=== PATIENT | male | born 1995 | race African-American/Black ===

== ENCOUNTER 2016-05-03 19:47 | Emergency (ER) | payer OTHER ==
[2016-05-03] MEDS ORDERED: PHENAZOPYRIDINE 100 MG TAB As Ordered ONE (22:02)
--- NOTE | 2016-05-03 22:07 | EDDOCDS ---
Nurse's Notes [facility] Name: Travis Palma Age: 21 yrs Sex: Male : 1995 Arrival Date: 05/03/2016 Time: 19:47 Bed Triage 3 Private MD: ORJoseph GASTON Diagnosis: Acute cystitis without hematuria Presentation: 05/03 19:54 Presenting complaint: Patient states: Has urinary frequency x1 week. Feels like he has jo3 to go but only a little comes out. Adult Sepsis Screening: The patient does not have new or worsening altered mentation. Patient's respiratory rate is less than 22. Systolic blood pressure is greater than 100. Patient has a qSOFA score of 0- Negative Sepsis Screen. Suicide/Homicide risk assessment- the patient denies having any suicidal and/or homicidal ideations and does not present with any other emotional, behavioral or mental health complaints. 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 Transition of care: patient was not received from another setting of care. 19:54 Acuity: ADELITA Level 3 jo3 19:54 Method Of Arrival: Walkin/Carried/Asstd jo3 Triage Assessment: 19:56 General: Appears in no apparent distress, Behavior is appropriate for age, cooperative. jo3 HIV screening NA for this visit Offered previously. Neurological: Level of Consciousness is awake, alert, Oriented to person, place, time. Respiratory: Airway is patent Respiratory effort is even, unlabored. Historical: - Allergies: no known allergies; - Home Meds: 1. none - PMHx: none; - PSHx: none; - Social history: Smoking status: Patient states was never smoker of tobacco. No barriers to communication noted, The patient speaks fluent Northern Irish, Speaks appropriately for age, Preferred Language:. - Family history: Not pertinent. - : The pt / caregiver states he / she is not on anticoagulants. Home medication list is obtained from the patient. - Exposure Risk Screening:: None identified. Screenin:46 Screening information is obtained from the patient. Fall risk: No risks identified. lf1 Assistance ADL's: requires no assistance with activities of daily living. Abuse/DV Screen: The patient / caregiver reports he/she is: not in a situation that causes fear, pain or injury. Nutritional screening: No deficits noted. Advance Directives: Currently, there is. home support is adequate. Assessment: 20:46 Adult Sepsis Screening: The patient does not have new or worsening altered mentation. lf1 Patient's respiratory rate is less than 22. Systolic blood pressure is greater than 100. Patient has a qSOFA score of 0- Negative Sepsis Screen. General: Appears in no apparent distress, Behavior is cooperative. Pain: Denies pain. Neurological: Level of Consciousness is awake, alert, Oriented to person, place, time. EENT: No deficits noted. Cardiovascular: No deficits noted. Respiratory: Respiratory effort is even, unlabored. GI: No deficits noted. : Reports urinary frequency Denies burning with urination. Derm: No deficits noted. 22:05 Reassessment: Patient appears in no apparent distress at this time. Patient denies pain jo3 at this time. Vital Signs: 19:50 BP 135 / 67; Pulse 67; Resp 18 S; Temp 96.7(O); Pulse Ox 99% on R/A; Weight 77.11 kg gr2 (R); Height 72 in. (182.88 cm) (R); Pain 2/10; 22:03 BP 140 / 66; Pulse 70; Resp 20; Temp 97.5(O); Pulse Ox 97% on R/A; Pain 0/10; jmv 19:50 Body Mass Index 23.06 (77.11 kg, 182.88 cm) gr2 Vitals: 19:50 Log In Time: May 03, 2016 at 19:50. gr2 ED Course: 19:49 Patient visited by Kimberly Nash. gr2 19:49 [facility], [place] is Private Physician. gr2 19:49 Patient moved to Waiting gr2 19:51 Patient visited by Kimberly Nash. gr2 19:51 Patient moved to Pre RCE gr2 19:56 Triage Initiated jo3 19:57 Patient visited by Maria L Christianson RN. jo3 20:42 Patient moved to Triage 3 lf1 21:03 Patient visited by Katia Lynn RN. lf1 21:03 UA Sent. lf1 21:16 Gian Lee PA is PHCP. mo1 21:16 Charlie Phillips DO is Attending Physician. mo1 21:27 Patient visited by Gian Lee PA. mo1 21:50 Bladder Scan completed Results: 35 mL. jf3 21:58 [facility], [place] is Referral Physician. mo1 22:03 [facility] [place] was scanned into [employer] and attached to record. gjb 22:04 Patient visited by Brannon Hood PCA. jmv 22:05 The patient / caregiver is instructed regarding the plan of care and ED course. jo3 22:05 No IV's were initiated during this patient's visit. No procedures done that require jo3 assistance. Administered Medications: 22:05 Drug: Phenazopyridine 200 mg [phenazopyridine 100 mg tablet (2 tabs)] Route: PO; jo3 Point of Care Testing: Blood Glucose: 21:50 Blood Glucose: 87 mg/dL; jf3 Ranges: Order Results: Lab Order: UA; SPEC'M 05/03/16 20:59 Test: APPEARANCE, URINE; Value: CLEAR; Range: CLEAR; Status: F Test: COLOR, URINE; Value: YELLOW; Range: YELLOW; Status: F Test: PH,URINE; Value: 7.0; Range: 5.0-9.0; Units: UNITS; Status: F Test: SPECIFIC GRAVITY URINE AUTO; Value: 1.025; Range: 1.002-1.035; Status: F Test: PROTEIN, URINE AUTO; Value: NEGATIVE; Range: NEGATIVE; Units: mg/dL; Status: F Test: GLUCOSE, URINE (UA) AUTO; Value: NEGATIVE; Range: NEGATIVE; Units: mg/dL; Status: F Test: KETONE, URINE AUTO; Value: NEGATIVE; Range: NEGATIVE; Units: mg/dL; Status: F Test: UROBILINOGEN, URINE AUTO; Value: 2.0; Range: 0.0-2.0; Abnormal: Above high normal; Units: mg/dL; Status: F Test: BILIRUBIN, URINE AUTO; Value: NEGATIVE; Range: NEGATIVE; Status: F Test: NITRITE, URINE AUTO; Value: NEGATIVE; Range: NEGATIVE; Status: F Test: LEUKOCYTE ESTERASE, URINE AUTO; Value: NEGATIVE; Range: NEGATIVE; Status: F Test: BLOOD, URINE BLOOD; Value: NEGATIVE; Range: NEGATIVE; Status: F Test: WBC, URINE AUTO; Value: 0; Range: 0-3; Units: /HPF; Status: F Test: RBC, URINE AUTO; Value: 1; Range: 0-3; Units: /HPF; Status: F Test: BACTERIA, URINE AUTO; Value: NEGATIVE; Range: NEGATIVE; Status: F Test: SQUAMOUS EPITHELIAL CELL UR AU; Value: 0; Range: 0-6; Units: /HPF; Status: F Test: HYALINE CAST, URINE AUTO; Value: 0; Range: 0-1; Units: /LPF; Status: F Lab Order: Fingerstick Blood Sugar; SPEC'M 05/03/16 21:42 Test: BEDSIDE GLUCOSE; Value: 87; Range: 70-105; Units: MG/DL; Status: F Outcome: 21:58 Discharge ordered by Provider. mo1 22:05 Discharge Assessment: Patient awake, alert and oriented x 3. No cognitive and/or jo3 functional deficits noted. Patient verbalized understanding of disposition instructions. patient administered narcotics - no. The following High Risk Discharge criteria are identified: None. Discharged to home ambulatory. Condition: stable. Discharge instructions given to patient, Instructed on discharge instructions, follow up and referral plans. medication usage, Demonstrated understanding of instructions, medications, Pt was receptive of discharge instructions/ teaching. Prescriptions given X 1. No special radiology studies were completed. Property sent home with patient. 22:06 Patient left the ED. jo3 Signatures: Maria L Christianson,RN RN jo3 Katia Lynn,RN RN lf1 Kimberly Nash Michael, PA PA mo1 Liam Sequeira,RN RN jf3 Ailyn Candelario Jose, MAGALI UNIFORM ROOM ATTENDANT jmv MTDD
--- NOTE | 2016-05-03 22:07 | EDDOCDS ---
Physician Documentation [facility] Name: Travis Palma Age: 21 yrs Sex: Male : 1995 Arrival Date: 05/03/2016 Time: 19:47 Bed Triage 3 Private MD: [facility] [place] Disposition: 05/03/16 21:58 Discharged to Home/Self Care. Impression: Acute cystitis without hematuria. - Condition is Stable. - Discharge Instructions: Urinary Frequency. - Prescriptions for Pyridium 200 mg Oral Tablet - take 1 tablet by ORAL route every 8 hours for 3 days; 9 tablet. - Medication Reconciliation, Local Pharmacy Hours form. - Follow up: [facility]; When: Call to arrange an appointment; Reason: Recheck today's complaints, Continuance of care. - Problem is new. - Symptoms are unchanged. Historical: - Allergies: no known allergies; - Home Meds: 1. none - PMHx: none; - PSHx: none; - Social history: Smoking status: Patient states was never smoker of tobacco. No barriers to communication noted, The patient speaks fluent Icelandic, Speaks appropriately for age, Preferred Language:. - Family history: Not pertinent. - : The pt / caregiver states he / she is not on anticoagulants. Home medication list is obtained from the patient. - Exposure Risk Screening:: None identified. Vital Signs: 05/03 19:50 BP 135 / 67; Pulse 67; Resp 18 S; Temp 96.7(O); Pulse Ox 99% on R/A; Weight 77.11 kg / gr2 170 lbs (R); Height 72 in. (182.88 cm) (R); Pain 2/10; 22:03 BP 140 / 66; Pulse 70; Resp 20; Temp 97.5(O); Pulse Ox 97% on R/A; Pain 0/10; jmv 19:50 Body Mass Index 23.06 (77.11 kg, 182.88 cm) gr2 MDM: 20:49 UA Ordered. EDMS 21:28 Accucheck ordered. mo1 21:28 Bladder Scan please ordered. mo1 21:29 GC & Chlamydia Amplification Ordered. EDMS 21:51 UA Reviewed. mo1 21:52 Financial registration complete. gjb 21:57 Phenazopyridine 200 mg PO once ordered. mo1 22:03 [facility] [place] Payment Agreement was scanned into [employer] and attached to record. bereket Point of Care Testing: Blood Glucose: 21:50 Blood Glucose: 87 mg/dL; jf3 Ranges: Administered Medications: 22:05 Drug: Phenazopyridine 200 mg [phenazopyridine 100 mg tablet (2 tabs)] Route: PO; jo3 Signatures: Dispatcher [employer] Maria L Tamayo RN RN jo3 Gian Lee PA PA mo1 Ailyn Candelario The chart was reviewed and I authenticate all verbal orders and agree with the evaluation and treatment provided.Attachments: 22:03 [facility] Payment Agreement gjangie MTDD
--- NOTE | 2016-05-05 23:07 | EDDOCDS ---
Physician Documentation [facility] Name: Travis Palma Age: 21 yrs Sex: Male : 1995 Arrival Date: 05/03/2016 Time: 19:47 Bed Triage 3 Private MD: [facility] [place] Disposition: 05/03/16 21:58 Discharged to Home/Self Care. Impression: Acute cystitis without hematuria. - Condition is Stable. - Discharge Instructions: Urinary Frequency. - Prescriptions for Pyridium 200 mg Oral Tablet - take 1 tablet by ORAL route every 8 hours for 3 days; 9 tablet. - Medication Reconciliation, Local Pharmacy Hours form. - Follow up: [facility]; When: Call to arrange an appointment; Reason: Recheck today's complaints, Continuance of care. - Problem is new. - Symptoms are unchanged. Historical: - Allergies: no known allergies; - Home Meds: 1. none - PMHx: none; - PSHx: none; - Social history: Smoking status: Patient states was never smoker of tobacco. No barriers to communication noted, The patient speaks fluent Hungarian, Speaks appropriately for age, Preferred Language:. - Family history: Not pertinent. - : The pt / caregiver states he / she is not on anticoagulants. Home medication list is obtained from the patient. - Exposure Risk Screening:: None identified. Vital Signs: 05/03 19:50 BP 135 / 67; Pulse 67; Resp 18 S; Temp 96.7(O); Pulse Ox 99% on R/A; Weight 77.11 kg / gr2 170 lbs (R); Height 72 in. (182.88 cm) (R); Pain 2/10; 22:03 BP 140 / 66; Pulse 70; Resp 20; Temp 97.5(O); Pulse Ox 97% on R/A; Pain 0/10; jmv 19:50 Body Mass Index 23.06 (77.11 kg, 182.88 cm) gr2 MDM: 20:49 UA Ordered. EDMS 21:28 Accucheck ordered. mo1 21:28 Bladder Scan please ordered. mo1 21:29 GC & Chlamydia Amplification Ordered. EDMS 21:51 UA Reviewed. mo1 21:52 Financial registration complete. gjb 21:57 Phenazopyridine 200 mg PO once ordered. mo1 22:03 [facility] Payment Agreement was scanned into [employer] and attached to record. b 05/04 11:38 T-Sheet-- Draft Copy was scanned into [employer] and attached to record. jalyn Point of Care Testing: Blood Glucose: 05/03 21:50 Blood Glucose: 87 mg/dL; jf3 Ranges: Administered Medications: 22:05 Drug: Phenazopyridine 200 mg [phenazopyridine 100 mg tablet (2 tabs)] Route: PO; jo3 Signatures: Dispatcher [employer] EDMS Yue Pablo, Reg Reg gb Maria L Christianson RN RN jo3 Gian Lee PA PA mo1 Ailyn Candelario The chart was reviewed and I authenticate all verbal orders and agree with the evaluation and treatment provided.Attachments: 22:03 [facility] Payment Agreement [facility] 05/04 11:38 T-Sheet-- Draft Copy gb Chart Complete MTDD
--- NOTE | 2016-05-05 23:07 | EDDOCDS ---
Physician Documentation [facility] Name: Travis Palma Age: 21 yrs Sex: Male : 1995 Arrival Date: 05/03/2016 Time: 19:47 Bed Triage 3 Private MD: [facility] [place] Disposition: 05/03/16 21:58 Discharged to Home/Self Care. Impression: Acute cystitis without hematuria. - Condition is Stable. - Discharge Instructions: Urinary Frequency. - Prescriptions for Pyridium 200 mg Oral Tablet - take 1 tablet by ORAL route every 8 hours for 3 days; 9 tablet. - Medication Reconciliation, Local Pharmacy Hours form. - Follow up: [facility]; When: Call to arrange an appointment; Reason: Recheck today's complaints, Continuance of care. - Problem is new. - Symptoms are unchanged. Historical: - Allergies: no known allergies; - Home Meds: 1. none - PMHx: none; - PSHx: none; - Social history: Smoking status: Patient states was never smoker of tobacco. No barriers to communication noted, The patient speaks fluent Divehi, Speaks appropriately for age, Preferred Language:. - Family history: Not pertinent. - : The pt / caregiver states he / she is not on anticoagulants. Home medication list is obtained from the patient. - Exposure Risk Screening:: None identified. Vital Signs: 05/03 19:50 BP 135 / 67; Pulse 67; Resp 18 S; Temp 96.7(O); Pulse Ox 99% on R/A; Weight 77.11 kg / gr2 170 lbs (R); Height 72 in. (182.88 cm) (R); Pain 2/10; 22:03 BP 140 / 66; Pulse 70; Resp 20; Temp 97.5(O); Pulse Ox 97% on R/A; Pain 0/10; jmv 19:50 Body Mass Index 23.06 (77.11 kg, 182.88 cm) gr2 MDM: 20:49 UA Ordered. EDMS 21:28 Accucheck ordered. mo1 21:28 Bladder Scan please ordered. mo1 21:29 GC & Chlamydia Amplification Ordered. EDMS 21:51 UA Reviewed. mo1 21:52 Financial registration complete. gjb 21:57 Phenazopyridine 200 mg PO once ordered. mo1 22:03 [facility] Payment Agreement was scanned into [employer] and attached to record. b 05/04 11:38 T-Sheet-- Draft Copy was scanned into [employer] and attached to record. jalyn Point of Care Testing: Blood Glucose: 05/03 21:50 Blood Glucose: 87 mg/dL; jf3 Ranges: Administered Medications: 22:05 Drug: Phenazopyridine 200 mg [phenazopyridine 100 mg tablet (2 tabs)] Route: PO; jo3 Signatures: Dispatcher [employer] EDMS Yue Pablo, Reg Reg gb Maria L Christianson RN RN jo3 Gian Lee PA PA mo1 Ailyn Candelario The chart was reviewed and I authenticate all verbal orders and agree with the evaluation and treatment provided.Attachments: 22:03 [facility] Payment Agreement [facility] 05/04 11:38 T-Sheet-- Draft Copy gb Chart Complete MTDD
--- NOTE | 2016-05-05 23:07 | EDDOCDS ---
Nurse's Notes [facility] Name: Travis Palma Age: 21 yrs Sex: Male : 1995 Arrival Date: 05/03/2016 Time: 19:47 Bed Triage 3 Private MD: MEJoseph GASTON Diagnosis: Acute cystitis without hematuria Presentation: 05/03 19:54 Presenting complaint: Patient states: Has urinary frequency x1 week. Feels like he has jo3 to go but only a little comes out. Adult Sepsis Screening: The patient does not have new or worsening altered mentation. Patient's respiratory rate is less than 22. Systolic blood pressure is greater than 100. Patient has a qSOFA score of 0- Negative Sepsis Screen. Suicide/Homicide risk assessment- the patient denies having any suicidal and/or homicidal ideations and does not present with any other emotional, behavioral or mental health complaints. 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 Transition of care: patient was not received from another setting of care. 19:54 Acuity: ADELITA Level 3 jo3 19:54 Method Of Arrival: Walkin/Carried/Asstd jo3 Triage Assessment: 19:56 General: Appears in no apparent distress, Behavior is appropriate for age, cooperative. jo3 HIV screening NA for this visit Offered previously. Neurological: Level of Consciousness is awake, alert, Oriented to person, place, time. Respiratory: Airway is patent Respiratory effort is even, unlabored. Historical: - Allergies: no known allergies; - Home Meds: 1. none - PMHx: none; - PSHx: none; - Social history: Smoking status: Patient states was never smoker of tobacco. No barriers to communication noted, The patient speaks fluent South African, Speaks appropriately for age, Preferred Language:. - Family history: Not pertinent. - : The pt / caregiver states he / she is not on anticoagulants. Home medication list is obtained from the patient. - Exposure Risk Screening:: None identified. Screenin:46 Screening information is obtained from the patient. Fall risk: No risks identified. lf1 Assistance ADL's: requires no assistance with activities of daily living. Abuse/DV Screen: The patient / caregiver reports he/she is: not in a situation that causes fear, pain or injury. Nutritional screening: No deficits noted. Advance Directives: Currently, there is. home support is adequate. Assessment: 20:46 Adult Sepsis Screening: The patient does not have new or worsening altered mentation. lf1 Patient's respiratory rate is less than 22. Systolic blood pressure is greater than 100. Patient has a qSOFA score of 0- Negative Sepsis Screen. General: Appears in no apparent distress, Behavior is cooperative. Pain: Denies pain. Neurological: Level of Consciousness is awake, alert, Oriented to person, place, time. EENT: No deficits noted. Cardiovascular: No deficits noted. Respiratory: Respiratory effort is even, unlabored. GI: No deficits noted. : Reports urinary frequency Denies burning with urination. Derm: No deficits noted. 22:05 Reassessment: Patient appears in no apparent distress at this time. Patient denies pain jo3 at this time. Vital Signs: 19:50 BP 135 / 67; Pulse 67; Resp 18 S; Temp 96.7(O); Pulse Ox 99% on R/A; Weight 77.11 kg gr2 (R); Height 72 in. (182.88 cm) (R); Pain 2/10; 22:03 BP 140 / 66; Pulse 70; Resp 20; Temp 97.5(O); Pulse Ox 97% on R/A; Pain 0/10; jmv 19:50 Body Mass Index 23.06 (77.11 kg, 182.88 cm) gr2 Vitals: 19:50 Log In Time: May 03, 2016 at 19:50. gr2 ED Course: 19:49 Patient visited by Kimberly Nash. gr2 19:49 [facility] [place] is Private Physician. gr2 19:49 Patient moved to Waiting gr2 19:51 Patient visited by Kimberly Nash. gr2 19:51 Patient moved to Pre RCE gr2 19:56 Triage Initiated jo3 19:57 Patient visited by Maria L Christianson RN. jo3 20:42 Patient moved to Triage 3 lf1 21:03 Patient visited by Katia Lynn RN. lf1 21:03 UA Sent. lf1 21:16 Gian Lee PA is PHCP. mo1 21:16 Charlie Phillips DO is Attending Physician. mo1 21:27 Patient visited by Gian Lee PA. mo1 21:50 Bladder Scan completed Results: 35 mL. jf3 21:58 [facility], [place] is Referral Physician. mo1 22:03 [facility] [place] Payment Agreement was scanned into [employer] and attached to record. gjb 22:04 Patient visited by Brannon Hood PCA. jmv 22:05 The patient / caregiver is instructed regarding the plan of care and ED course. jo3 22:05 No IV's were initiated during this patient's visit. No procedures done that require jo3 assistance. 05/04 11:38 T-Sheet-- Draft Copy was scanned into [employer] and attached to record. gb Administered Medications: 05/03 22:05 Drug: Phenazopyridine 200 mg [phenazopyridine 100 mg tablet (2 tabs)] Route: PO; jo3 Point of Care Testing: Blood Glucose: 21:50 Blood Glucose: 87 mg/dL; jf3 Ranges: Order Results: Lab Order: UA; SPEC'M 05/03/16 20:59 Test: APPEARANCE, URINE; Value: CLEAR; Range: CLEAR; Status: F Test: COLOR, URINE; Value: YELLOW; Range: YELLOW; Status: F Test: PH,URINE; Value: 7.0; Range: 5.0-9.0; Units: UNITS; Status: F Test: SPECIFIC GRAVITY URINE AUTO; Value: 1.025; Range: 1.002-1.035; Status: F Test: PROTEIN, URINE AUTO; Value: NEGATIVE; Range: NEGATIVE; Units: mg/dL; Status: F Test: GLUCOSE, URINE (UA) AUTO; Value: NEGATIVE; Range: NEGATIVE; Units: mg/dL; Status: F Test: KETONE, URINE AUTO; Value: NEGATIVE; Range: NEGATIVE; Units: mg/dL; Status: F Test: UROBILINOGEN, URINE AUTO; Value: 2.0; Range: 0.0-2.0; Abnormal: Above high normal; Units: mg/dL; Status: F Test: BILIRUBIN, URINE AUTO; Value: NEGATIVE; Range: NEGATIVE; Status: F Test: NITRITE, URINE AUTO; Value: NEGATIVE; Range: NEGATIVE; Status: F Test: LEUKOCYTE ESTERASE, URINE AUTO; Value: NEGATIVE; Range: NEGATIVE; Status: F Test: BLOOD, URINE BLOOD; Value: NEGATIVE; Range: NEGATIVE; Status: F Test: WBC, URINE AUTO; Value: 0; Range: 0-3; Units: /HPF; Status: F Test: RBC, URINE AUTO; Value: 1; Range: 0-3; Units: /HPF; Status: F Test: BACTERIA, URINE AUTO; Value: NEGATIVE; Range: NEGATIVE; Status: F Test: SQUAMOUS EPITHELIAL CELL UR AU; Value: 0; Range: 0-6; Units: /HPF; Status: F Test: HYALINE CAST, URINE AUTO; Value: 0; Range: 0-1; Units: /LPF; Status: F Lab Order: GC & Chlamydia Amplification; SPEC'M 05/03/16 20:59 Test: CHLAMYDIA DNA AMPLIFICATION; Value: NEGATIVE; Range: NEGATIVE; Status: F Test: GC DNA AMPLIFICATION; Value: NEGATIVE; Range: NEGATIVE; Status: F Lab Order: Fingerstick Blood Sugar; SPEC'M 05/03/16 21:42 Test: BEDSIDE GLUCOSE; Value: 87; Range: 70-105; Units: MG/DL; Status: F Outcome: 21:58 Discharge ordered by Provider. mo1 22:05 Discharge Assessment: Patient awake, alert and oriented x 3. No cognitive and/or jo3 functional deficits noted. Patient verbalized understanding of disposition instructions. patient administered narcotics - no. The following High Risk Discharge criteria are identified: None. Discharged to home ambulatory. Condition: stable. Discharge instructions given to patient, Instructed on discharge instructions, follow up and referral plans. medication usage, Demonstrated understanding of instructions, medications, Pt was receptive of discharge instructions/ teaching. Prescriptions given X 1. No special radiology studies were completed. Property sent home with patient. 22:06 Patient left the ED. jo3 Signatures: Yue Pablo, Petesron Reg Maria L SosaRN RN jo3 Katia LynnRN RN lf1 Kimberly Nash gr2 Gian Lee PA PA mo1 Liam Sequeira,RONY RN Ailyn Vega Jose, PCA [employer] jmv Chart Complete MTDD
== END 2016-05-03 22:06 | disposition home or self-care (01) ==
LOC: M ED 19:47
DX: N30.00 Acute cystitis without hematuria (principal)

== ENCOUNTER 2017-07-18 10:32 | Emergency (ER) | payer OTHER ==
[2017-07-18 11:34] LABS: BASO % 0.5 % (0.0-1.0); HEMATOCRIT 47.7 % (42.0-52.0); HEMOGLOBIN 16.1 g/dl (13.5-17.5); IMMATURE GRANULOCYTE % 0.2 % (0-3.0); LYMPH % 48.1 % (24.0-44.0); MEAN CORPUSCULAR HEMOGLOBIN 27.5 pg (27.0-33.0); MEAN CORPUSCULAR HGB CONC 33.8 g/dl (32.0-36.5); MEAN CORPUSCULAR VOLUME 81.5 fl (80.0-96.0); MONO # 0.3 10^3/uL (0.0-0.8); MONO % 7.4 % (0.0-5.0); NEUTROPHILS # 1.8 10^3/uL (1.8-7.7); NEUTROPHILS % 42.8 % (36.0-66.0); PLATELET COUNT, AUTOMATED 297 10^3/uL (150-450); RED BLOOD COUNT 5.85 10^6/uL (4.30-6.10); RED CELL DISTRIBUTION WIDTH 12.7 % (11.5-14.5); WHITE BLOOD COUNT 4.2 10^3/uL (4.0-10.0)
[2017-07-18 11:37] LABS: KETONE, URINE AUTO RFX NEGATIVE (NEGATIVE); MUCUS, URINE RFX SMALL (NEGATIVE); NITRITE, URINE AUTO RFX NEGATIVE (NEGATIVE); RBC, URINE AUTO RFX 1 /HPF (0-3); SPECIFIC GRAVITY UR AUTO RFX 1.019 (1.002-1.035); SQUAM EPITHELIAL CELL UR AURFX 0 /HPF (0-6); WBC, URINE AUTO RFX 8 /HPF (0-3)
[2017-07-18 11:40] LABS: LEUKOCYTE ESTERASE UR AUTO RFX TRACE (NEGATIVE)
[2017-07-18 11:59] LABS: ANION GAP 5 MEQ/L (8-16); BLOOD UREA NITROGEN 13 MG/DL (7-18); CALCIUM LEVEL 9.5 MG/DL (8.5-10.1); CARBON DIOXIDE LEVEL 26 MEQ/L (21-32); CHLORIDE LEVEL 109 MEQ/L (98-107); CREATININE FOR GFR 1.05 MG/DL (0.70-1.30); GLOMERULAR FILTRATION RATE > 60.0 (>60); GLUCOSE, FASTING 100 MG/DL (70-100); POTASSIUM SERUM 4.2 MEQ/L (3.5-5.1); SODIUM LEVEL 140 MEQ/L (136-145)
== END 2017-07-18 13:07 | disposition home or self-care (01) ==
LOC: M ED 10:32
DX: N30.00 Acute cystitis without hematuria (principal)
CPT/HCPCS: 80048

== ENCOUNTER 2018-02-06 16:23 | Emergency (ER) | payer OTHER ==
[2018-02-06 17:59] LABS: BASO % 0.3 % (0.0-1.0); EOS % 0.7 % (0.0-3.0); HEMATOCRIT 44.5 % (42.0-52.0); HEMOGLOBIN 15.1 g/dl (13.5-17.5); IMMATURE GRANULOCYTE % 0.2 % (0-3.0); LYMPH % 50.3 % (24.0-44.0); MEAN CORPUSCULAR HGB CONC 33.9 g/dl (32.0-36.5); MEAN CORPUSCULAR VOLUME 82.6 fl (80.0-96.0); MONO # 0.4 10^3/uL (0.0-0.8); NEUTROPHILS # 2.5 10^3/uL (1.8-7.7); NEUTROPHILS % 41.5 % (36.0-66.0); PLATELET COUNT, AUTOMATED 279 10^3/uL (150-450); RED BLOOD COUNT 5.39 10^6/uL (4.30-6.10); RED CELL DISTRIBUTION WIDTH 12.3 % (11.5-14.5); WHITE BLOOD COUNT 5.9 10^3/uL (4.0-10.0)
[2018-02-06 18:18] LABS: APPEARANCE, URINE CLEAR (CLEAR); BACTERIA, URINE AUTO NEGATIVE (NEGATIVE); BILIRUBIN, URINE AUTO NEGATIVE (NEGATIVE); BLOOD, URINE BLOOD NEGATIVE (NEGATIVE); COLOR, URINE YELLOW (YELLOW); GLUCOSE, URINE (UA) AUTO NEGATIVE (NEGATIVE); KETONE, URINE AUTO NEGATIVE (NEGATIVE); LEUKOCYTE ESTERASE, URINE AUTO NEGATIVE (NEGATIVE); MUCUS, URINE SMALL (NEGATIVE); NITRITE, URINE AUTO NEGATIVE (NEGATIVE); PROTEIN, URINE AUTO NEGATIVE (NEGATIVE); RBC, URINE AUTO 1 /HPF (0-3); SPECIFIC GRAVITY URINE AUTO 1.027 (1.002-1.035); SQUAMOUS EPITHELIAL CELL UR AU 0 /HPF (0-6); WBC, URINE AUTO 1 /HPF (0-3)
[2018-02-06 18:25] LABS: ANION GAP 3 MEQ/L (8-16); BLOOD UREA NITROGEN 16 MG/DL (7-18); CALCIUM LEVEL 9.2 MG/DL (8.5-10.1); CARBON DIOXIDE LEVEL 31 MEQ/L (21-32); CHLORIDE LEVEL 107 MEQ/L (98-107); CPK CREATINE PHOSPHOKINASE 772 U/L (39-308); CREATININE FOR GFR 1.24 MG/DL (0.70-1.30); GLOMERULAR FILTRATION RATE > 60.0 (>60); GLUCOSE, FASTING 83 MG/DL (70-100); MAGNESIUM LEVEL 2.1 MG/DL (1.8-2.4); POTASSIUM SERUM 4.7 MEQ/L (3.5-5.1); SODIUM LEVEL 141 MEQ/L (136-145)
== END 2018-02-06 19:42 | disposition home or self-care (01) ==
LOC: M ED 16:23
DX: M79.10 Myalgia, unspecified site (principal)
CPT/HCPCS: 82550

== ENCOUNTER 2018-02-10 16:39 | Emergency (ER) | payer OTHER ==
[2018-02-10 18:38] LABS: CHLAMYDIA DNA AMPLIFICATION NEGATIVE (NEGATIVE); GC DNA AMPLIFICATION NEGATIVE (NEGATIVE)
== END 2018-02-10 19:04 | disposition home or self-care (01) ==
LOC: M ED 16:39
DX: Z20.2 Contact with and (suspected) exposure to infections with a predominantly sexual mode of transmission (principal)
CPT/HCPCS: 87591

== ENCOUNTER 2018-02-18 19:06 | Emergency (ER) | payer OTHER ==
[2018-02-18 20:00] LABS: KETONE, URINE AUTO RFX NEGATIVE (NEGATIVE); LEUKOCYTE ESTERASE UR AUTO RFX 1+ (NEGATIVE); MUCUS, URINE RFX SMALL (NEGATIVE); NITRITE, URINE AUTO RFX NEGATIVE (NEGATIVE); RBC, URINE AUTO RFX 0 /HPF (0-3); SPECIFIC GRAVITY UR AUTO RFX 1.021 (1.002-1.035); SQUAM EPITHELIAL CELL UR AURFX 0 /HPF (0-6); WBC, URINE AUTO RFX 6 /HPF (0-3)
[2018-02-18] MEDS: AZITHROMYCIN 250 MG TAB PO (21:01)
[2018-02-18] MEDS: cefTRIAXone SOD 250 MG VIAL (J0696) IM (21:01)
[2018-02-18 21:31] LABS: CHLAMYDIA DNA AMPLIFICATION NEGATIVE (NEGATIVE); GC DNA AMPLIFICATION NEGATIVE (NEGATIVE)
== END 2018-02-18 21:15 | disposition home or self-care (01) ==
LOC: M ED 19:06
DX: R30.0 Dysuria (principal); Z20.2 Contact with and (suspected) exposure to infections with a predominantly sexual mode of transmission
CPT/HCPCS: J0696

== ENCOUNTER 2018-06-30 20:39 | Emergency (ER) | payer OTHER ==
[~2018-06-30] VITALS: Ht 182.9 cm; Wt 79.5 kg
[~2018-06-30 20:39] MED LIST: CIPR-249 PO; DOXY100C37 PO; PYRI1TAB5 PO
[2018-06-30 21:35] LABS: INFLUENZA A AMPLIFICATION POSITIVE (NEGATIVE); INFLUENZA B AMPLIFICATION NEGATIVE (NEGATIVE)
[2018-06-30] MEDS ORDERED: OSEL75CA PO (21:38)
[2018-06-30] MEDS ORDERED: PROAAER10 INH (21:42)
[2018-06-30 21:45] VITALS: BP 126/68
[2018-06-30] MEDS ORDERED: OSELTAMIVIR PHOSPHATE 75 MG CAP (TAMIFLU) PO ONE (21:45)
== END 2018-06-30 21:56 | disposition home or self-care (01) ==
LOC: M ED 20:39
DX: J09.X2 Influenza due to identified novel influenza A virus with other respiratory manifestations (principal); B34.9 Viral infection, unspecified

== ENCOUNTER 2018-12-16 18:01 | Emergency (ER) | payer OTHER ==
[~2018-12-16] VITALS: Ht 182.9 cm; Wt 80.2 kg
[2018-12-16 18:01] VITALS: BP 122/79
[~2018-12-16 18:01] MED LIST changes: +OSEL75CA PO; +PROAAER10 INH
[2018-12-16 19:57] LABS: CHLAMYDIA DNA AMPLIFICATION NEGATIVE (NEGATIVE); GC DNA AMPLIFICATION NEGATIVE (NEGATIVE)
== END 2018-12-16 18:52 | disposition home or self-care (01) ==
LOC: M ED 18:01
DX: Z20.2 Contact with and (suspected) exposure to infections with a predominantly sexual mode of transmission (principal)